=== PATIENT | male | born 1955 | race African-American/Black ===

== ENCOUNTER 2020-05-14 17:13 | Outpatient (CLI) | payer OTHER, SELFPAY ==
[2020-05-14 18:40] LABS: Hemoglobin A1C 6.3 % (<5.7)
[2020-05-14 18:41] LABS: Alanine Aminotransferase 48 U/L (4-50); Albumin Level 4.1 g/dL (3.5-5.1); Alkaline Phosphatase 83 U/L (38-126); Anion Gap 6 mmol/L (8-16); Aspartate Amino Transferase 46 U/L (17-59); Blood Urea Nitrogen 22 mg/dL (9-20); Calcium 9.5 mg/dL (8.4-10.2); Carbon Dioxide 33 mmol/L (22-30); Chloride 101 mmol/L (98-107); Cholesterol 174 mg/dL (0-200); Estimated Glomerular Filt Rate > 60; Glucose 134 mg/dL (75-110); HDL Direct 59 mg/dL; Potassium 3.8 mmol/L (3.4-5.0); Sodium 140 mmol/L (137-145); Triglycerides 110 mg/dL (<150)
[2020-05-14 18:53] LABS: LDL Cholesterol Direct 81 mg/dL
[2020-05-14 19:43] LABS: Vitamin D 25 Hydroxy 37.5 ng/mL
[2020-05-14 21:24] LABS: Valproic Acid < 10.0 ug/mL (50-120)
[2020-05-18 07:43] LABS: Levetiracetam Keppra 2.6 mcg/mL (12.0-46.0)
== END 2020-05-14 17:14 | disposition home or self-care (01) ==
LOC: ANHLAB 17:19
PROVIDERS: PCP Internal Medicine; Visit Provider Internal Medicine
DX: E11.21 Type 2 diabetes mellitus with diabetic nephropathy (principal); I10 Essential (primary) hypertension; G40.909 Epilepsy, unspecified, not intractable, without status epilepticus; E78.5 Hyperlipidemia, unspecified; E55.9 Vitamin D deficiency, unspecified
CPT/HCPCS: 36415; 80053; 80061; 80164; 80177; 82306; 83036

== ENCOUNTER 2020-05-16 10:31 | Outpatient (CLI) | payer OTHER, SELFPAY ==
--- NOTE | ~2020-05-16 | XR_ITS ---
XR chest 2V DATE: 05/16/2020 10:53 INDICATION: Cough for 2 months TECHNIQUE: PA and lateral views COMPARISON: None FINDINGS: There are multiple old healed right rib fractures. Normal heart size. No hilar or mediastinal enlargement. No pulmonary infiltrate or consolidation, ple ural effusion or pulmonary vascular congestion or pneumothorax. IMPRESSION: No active cardiopulmonary disease Reviewed, dictated and finalized at location B.
== END 2020-05-16 10:32 | disposition home or self-care (01) ==
LOC: ANHIMG 10:36
PROVIDERS: PCP Internal Medicine; Visit Provider Internal Medicine
DX: R05 Cough (principal)
CPT/HCPCS: 71046

== ENCOUNTER 2020-07-16 09:22 | Outpatient (CLI) | payer OTHER, SELFPAY ==
[2020-07-16 10:31] LABS: Valproic Acid 21.6 ug/mL (50-120)
[2020-07-19 09:33] LABS: Levetiracetam Keppra 27.2 mcg/mL (12.0-46.0)
== END 2020-07-16 09:23 | disposition home or self-care (01) ==
PROVIDERS: PCP Internal Medicine; Visit Provider Internal Medicine
DX: G40.909 Epilepsy, unspecified, not intractable, without status epilepticus (principal)
CPT/HCPCS: 36415; 80164; 80177

== ENCOUNTER 2020-11-14 11:46 | Outpatient (CLI) | payer OTHER, SELFPAY ==
[2020-11-14 12:57] LABS: Alanine Aminotransferase 25 U/L (4-50); Albumin Level 4.4 g/dL (3.5-5.1); Alkaline Phosphatase 63 U/L (38-126); Anion Gap 8 mmol/L (8-16); Aspartate Amino Transferase 34 U/L (17-59); Bilirubin,Total 0.6 mg/dL (0.2-1.3); Blood Urea Nitrogen 24 mg/dL (9-20); Calcium 9.2 mg/dL (8.4-10.2); Carbon Dioxide 29 mmol/L (22-30); Chloride 104 mmol/L (98-107); Cholesterol 167 mg/dL (0-200); Estimated Glomerular Filt Rate 53; Glucose 110 mg/dL (75-110); HDL Direct 56 mg/dL; Hemoglobin A1C 6.8 % (<5.7); Potassium 3.5 mmol/L (3.4-5.0); Sodium 141 mmol/L (137-145); Triglycerides 126 mg/dL (<150)
[2020-11-14 13:08] LABS: LDL Cholesterol Direct 79 mg/dL
[2020-11-14 13:26] LABS: Vitamin D 25 Hydroxy 46.4 ng/mL
== END 2020-11-14 11:47 | disposition home or self-care (01) ==
LOC: ANHLAB 11:49
PROVIDERS: PCP Internal Medicine; Visit Provider Nurse Practitioner
DX: E78.5 Hyperlipidemia, unspecified (principal); E11.9 Type 2 diabetes mellitus without complications; E55.9 Vitamin D deficiency, unspecified
CPT/HCPCS: 36415; 80053; 80061; 82306; 83036

== ENCOUNTER 2021-02-25 00:32 | Day surgery (SDC) | payer OTHER, SELFPAY ==
[2021-02-08 12:03] VITALS: BMI 26.4
--- NOTE | 2021-02-24 14:11 | SUR.PREOP ---
1151 02/23/21 CALLED PATIENT REGARDING HIM MISSING HIS COVID TEST ON THURSDAY. NO ANSWER LEFT MESSAGE ON VOICEMAIL WITH CALL BACK INFORMATION. 1412 02/24/21 CALLED PATIENT REGARDING HIS PROCEDURE. PATIENT ANSWERED, DISCUSSED WITH PATIENT HOW HE WANTED TO PROCEED SINCE HE MISSED HIS COVID TEST APPOINTMENT ON THURSDAY AND THAT IT IS REQUIRED TO HAVE HIS PROCEDURE DONE. INQUIRED ABOUT IF HE RECEIVED HIS COVID VACCINATION. PATIENT DENIED RECEIVING COVID VACCINATION. PATIENT WANTS TO HAVE HIS PROCEDURE DONE TOMORROW. DISCUSSED WITH HIM THAT HE WOULD NEED TO BE COVID TESTED WITH A NASAL SWAB IN THE MORNING WHEN HE ARRIVES AND THEN WAIT FOR RESULTS. IT WAS ALSO DISCUSSED THAT IF THE TEST COMES BACK POSITIVE HIS PROCEDURE WOULD NOT BE DONE AND WOULD HAVE TO BE RESCHEDULED SEVERAL WEEKS LATER AND HE WOULD HAVE DONE HIS COLON PREP WITHOUT THE PROCEDURE. OFFERED TO RESCHEDULE HIS PROCEDURE TO ANOTHER DAY. THE PATIENT WANTS TO DO THE PROCEDURE TOMORROW AND VOICED UNDERSTANDING OF HIS PROCEDURE POTENTIALLY BEING CANCELLED AFTER HE DOES HIS COLON PREP IF THE COVID TEST CAME BACK POSITIVE. INSTRUCTED PATIENT TO CALL WHEN HE ARRIVES IN THE MORNING AND THEN WE WILL COME OUT TO DO HIS COVID TEST AND HE WILL HAVE TO WAIT FOR THE RESULTS BEFORE HE IS ABLE TO COME IN TO BE REGISTERED.
[2021-02-25 08:22] VITALS: BP 156/91; PULSE 60; RESP 20; TEMP 36.5; O2SAT 100; BMI 24.0
[2021-02-25] MEDS: LACTATED RINGERS 1,000 ML 150 ML IV CONT (08:44)
--- NOTE | 2021-02-25 08:48 | WPDANESEPPF ---
Anes - Initial Pre Proc Eval Procedure: Operation Date: 02/25/21 09:00 Proposed Procedures p Screening Colonoscopy - Andrew Gutierrez MD Date/Time: 02/25/21 08:48 Surgeon: Andrew Gutierrez MD Pre Op Diagnosis: neoplasm screening Patient Data Age: 65 Gender: M Height: 1.73 m Weight: 71.8 kg Last Vital Signs Temp 36.5 C 02/25/21 08:22 Pulse 60 02/25/21 08:22 Resp 20 02/25/21 08:22 BP 156/91 H 02/25/21 08:22 Pulse Ox 100 02/25/21 08:22 Allergies Allergy/AdvReac Type Severity Reaction Status Date / Time Penicillins Allergy Intermediate pt does Verified 02/25/21 08:21 not know Home Medications Medication Instructions Recorded Confirmed Type ergocalciferol (vitamin D2) 1,250 50,000 unit PO MONTHLY 06/24/19 02/08/21 History mcg (50,000 unit) capsule simvastatin 80 mg tablet 80 mg PO DAILY 06/24/19 02/08/21 History nystatin 100,000 unit/gram topical 1 applic TOPICAL BID #15 gm 11/16/19 02/08/21 Rx cream fluticasone propionate 50 2 spray NASAL DAILY #18.2 ml 04/11/20 02/08/21 Rx mcg/actuation nasal spray,suspension mometasone 0.1 % topical cream 1 applic TOPICAL DAILY PRN #15 gm 08/03/20 02/08/21 Rx divalproex 500 mg tablet,extended See Rx Instructions .ROUTE 10/08/20 02/08/21 Rx release 24 hr .COMPLEX #240 tablet pen needle, diabetic 31 gauge x #200 each 11/19/20 Rx 1/4 lorazepam 1 mg tablet 0.5 mg PO BID PRN #30 tablet 01/24/21 02/08/21 Rx chlorthalidone 25 mg tablet 25 mg PO DAILY #90 tablet 01/29/21 02/08/21 Rx lisinopril 30 mg tablet 30 mg PO DAILY #90 tablet 01/29/21 02/08/21 Rx blood sugar diagnostic See Rx Instructions .ROUTE 01/31/21 Rx .COMPLEX #200 strip clonidine HCl 0.1 mg tablet 0.1 mg PO DAILY #90 tablet 02/08/21 Rx insulin glargine [Basaglar KwikPen 30 unit SUBCUT BID 02/08/21 02/08/21 History U-100 Insulin] lancets 33 gauge See Rx Instructions .ROUTE 02/08/21 Rx .COMPLEX #200 ea latanoprost 0.005 % eye drops 1 drp EACH EYE QPM #2.5 ml 02/08/21 Rx levetiracetam 500 mg tablet 500 mg PO TID #180 tablet 02/08/21 Rx metformin 1,000 mg tablet 1,000 mg PO BID #180 tablet 02/08/21 Rx hydrocodone 10 mg-acetaminophen 1 tablet PO DAILY PRN #30 tablet 02/11/21 Rx 325 mg tablet Patient hx anesthesia problems: none Family hx anesthesia problems: none PMFSH Family History Family History Mother Patient's mother is in good health Father Patient's father is in good health Sibling Patient's sister is in good health Patient's brother is in good health Social History Social History Smoking status: Never smoker Alcohol intake: former Substance use: never Substance use type: does not use Spiritual care concerns: No Anes - Eval Final PreProcedure Day of Procedure 02/25/21 08:48 Patient weight: normal Heart: regular rate and rhythm Lungs: clear to auscultation Airway: Mallampati scale class II and other (edentulous) Neurological: alert and oriented Last oral intake: >/= 8 hours ASA classification: III Emergent: no Anesthetic plan: proceed Anesthesia type and monitoring: general GIVS and standard monitoring Informed Consent: The patient's anesthetic plan and its attendant risks and benefits were discussed with the patient/family/POA. Questions were solicited and answers provided to the satisfaction of the patient/family/POA.
--- NOTE | 2021-02-25 09:02 | PM.HPGS ---
History of Present Illness History of Present Illness Consent: Risks, benefits, and alternatives have been discussed and questions answered. Patient agrees to proceed with procedure. Chief complaint: neoplasm screening Narrative: Gregg Henson is a 65 year old male with last colonoscopy 10 years ago. Also intermittent loose stool. Review of Systems Constitutional: Constitutional: Denies headache(s) and Denies weakness Eyes: Eyes: Denies blurry vision ENT: Reports Normal hearing present, Denies headache(s) and Denies neck pain Cardiovascular: Cardiovascular: Denies chest pain and Denies dyspnea Respiratory: Respiratory: Denies dyspnea Gastrointestinal: Gastrointestinal: Reports no additional gastrointestinal complaints Genitourinary: Genitourinary: Denies dysuria Musculoskeletal: Musculoskeletal: Denies neck pain Integumentary/Breasts: Skin/Breast: Denies dry skin Neurologic: Reports Normal hearing present, Denies headache(s) and Denies weakness Psychiatric: Psychiatric: Denies anxiety Endocrine: Endocrine: Denies change in body appearance Hematologic/Lymphatic: Hematologic/Lymphatic: Denies easy bleeding Allergic/Immunologic: Allergic/Immunologic: Denies urticaria [facility] Past Medical History Medical History (Updated 02/25/21 @ 09:03 by Andrew Gutierrez MD) Colon cancer screening Family History Family History Mother Patient's mother is in good health Father Patient's father is in good health Sibling Patient's sister is in good health Patient's brother is in good health Social History Social History Smoking status: Never smoker Alcohol intake: former Substance use: never Substance use type: does not use Spiritual care concerns: No Meds Home Medications and Allergies Home Medications Medication Instructions Recorded Confirmed Type ergocalciferol (vitamin D2) 1,250 50,000 unit PO MONTHLY 06/24/19 02/08/21 History mcg (50,000 unit) capsule simvastatin 80 mg tablet 80 mg PO DAILY 06/24/19 02/08/21 History nystatin 100,000 unit/gram topical 1 applic TOPICAL BID #15 gm 11/16/19 02/08/21 Rx cream fluticasone propionate 50 2 spray NASAL DAILY #18.2 ml 04/11/20 02/08/21 Rx mcg/actuation nasal spray,suspension mometasone 0.1 % topical cream 1 applic TOPICAL DAILY PRN #15 gm 08/03/20 02/08/21 Rx divalproex 500 mg tablet,extended See Rx Instructions .ROUTE 10/08/20 02/08/21 Rx release 24 hr .COMPLEX #240 tablet pen needle, diabetic 31 gauge x #200 each 11/19/20 Rx 1/4 lorazepam 1 mg tablet 0.5 mg PO BID PRN #30 tablet 01/24/21 02/08/21 Rx chlorthalidone 25 mg tablet 25 mg PO DAILY #90 tablet 01/29/21 02/08/21 Rx lisinopril 30 mg tablet 30 mg PO DAILY #90 tablet 01/29/21 02/08/21 Rx blood sugar diagnostic See Rx Instructions .ROUTE 01/31/21 Rx .COMPLEX #200 strip clonidine HCl 0.1 mg tablet 0.1 mg PO DAILY #90 tablet 02/08/21 Rx insulin glargine [Basaglar KwikPen 30 unit SUBCUT BID 02/08/21 02/08/21 History U-100 Insulin] lancets 33 gauge See Rx Instructions .ROUTE 02/08/21 Rx .COMPLEX #200 ea latanoprost 0.005 % eye drops 1 drp EACH EYE QPM #2.5 ml 02/08/21 Rx levetiracetam 500 mg tablet 500 mg PO TID #180 tablet 02/08/21 Rx metformin 1,000 mg tablet 1,000 mg PO BID #180 tablet 02/08/21 Rx hydrocodone 10 mg-acetaminophen 1 tablet PO DAILY PRN #30 tablet 02/11/21 Rx 325 mg tablet Allergies Allergy/AdvReac Type Severity Reaction Status Date / Time Penicillins Allergy Intermediate pt does Verified 02/25/21 08:21 not know Vital Signs Vital Signs - 24 hr 02/25/21 08:22 Temperature 97.7 F Pulse Rate 60 Respiratory Rate 20 Blood Pressure 156/91 H Pulse Oximetry 100 Exam Const: General: comfortable and no acute distress HENMT: General nose exam: Normal nares present Eyes: General: appearance normal, bot
[2021-02-25 09:09] LABS: Glucose Point of Care 151 mg/dl (65-105)
[2021-02-25 09:41] VITALS: BP 147/88; PULSE 58; RESP 18; O2SAT 100
[2021-02-25 09:51] VITALS: BP 162/79; PULSE 62; RESP 26; O2SAT 100
[2021-02-25 10:00] LABS: Glucose Point of Care 161 mg/dl (65-105)
[2021-02-25 10:01] VITALS: BP 153/90; PULSE 62; RESP 22; O2SAT 100
== END 2021-02-25 10:03 | disposition home or self-care (01) ==
PROVIDERS: PCP Internal Medicine; Visit Provider Internal Medicine Gastroenterology
PROC: 0DJD8ZZ Inspection of Lower Intestinal Tract, Via Natural or Artificial Opening Endoscopic (ICD-10-PCS; CPT 45378; principal; 2021-02-25 09:00)
DX: Z12.11 Encounter for screening for malignant neoplasm of colon (principal); R19.7 Diarrhea, unspecified; K64.8 Other hemorrhoids; Z79.4 Long term (current) use of insulin
CPT/HCPCS: 45380; 36415; 82948; 87426; 88305; C9803; J2704; J7120

== ENCOUNTER 2021-02-25 06:24 | Outpatient (CLI) | payer OTHER, SELFPAY ==
[2021-02-25 07:33] LABS: EDCOVIDSCREEN Negative (Negative)
== END 2021-02-25 06:25 | disposition home or self-care (01) ==
PROVIDERS: PCP Internal Medicine; Visit Provider Internal Medicine Gastroenterology
DX: Z01.812 Encounter for preprocedural laboratory examination (principal); Z20.822 Contact with and (suspected) exposure to COVID-19
CPT/HCPCS: 36415; 87426; C9803

== ENCOUNTER 2021-03-11 15:00 | Outpatient (CLI) | payer OTHER, SELFPAY ==
[2021-03-11 16:08] LABS: CRP 0.7 mg/dL (<1.0); Uric Acid 10.3 mg/dL (3.5-8.5)
[2021-03-11 16:25] LABS: Erythrocyte Sedimentation Rate 38 mm/hr (0-20)
== END 2021-03-11 15:01 | disposition home or self-care (01) ==
LOC: ANHLAB 15:03
PROVIDERS: PCP Internal Medicine; Visit Provider Podiatrist Foot & Ankle Surgery
DX: M10.071 Idiopathic gout, right ankle and foot (principal)
CPT/HCPCS: 36415; 84550; 85652; 86140

== ENCOUNTER 2021-03-26 10:52 | Outpatient (CLI) | payer OTHER, SELFPAY ==
[2021-03-26 11:51] LABS: Alanine Aminotransferase 27 U/L (4-50); Albumin Level 4.5 g/dL (3.5-5.1); Alkaline Phosphatase 71 U/L (38-126); Anion Gap 9 mmol/L (8-16); Aspartate Amino Transferase 34 U/L (17-59); Bilirubin,Total 0.8 mg/dL (0.2-1.3); Blood Urea Nitrogen 19 mg/dL (9-20); Calcium 9.8 mg/dL (8.4-10.2); Carbon Dioxide 28 mmol/L (22-30); Chloride 101 mmol/L (98-107); Cholesterol 210 mg/dL (0-200); Estimated Glomerular Filt Rate 57; Glucose 114 mg/dL (65-110); HDL Direct 75 mg/dL; Potassium 3.7 mmol/L (3.4-5.0); Sodium 138 mmol/L (137-145); Triglycerides 129 mg/dL (<150)
[2021-03-26 12:02] LABS: LDL Cholesterol Direct 90 mg/dL
[2021-03-26 12:05] LABS: Hemoglobin A1C 6.2 % (<5.7)
[2021-03-26 12:21] LABS: Prostate Specific Antigen 1.1 ng/mL (< OR = 4.0)
[2021-03-26 12:59] LABS: Creatinine Urine 67.3 mg/dL
[2021-03-26 13:05] LABS: MALB Creatinine Ratio 80.8 mg/g (0-30); Microalbumin Urine Random 54.4 mg/L (0-16.7)
[2021-03-26 13:16] LABS: Vitamin D 25 Hydroxy 44.7 ng/mL
[2021-03-29 11:51] LABS: Levetiracetam Keppra 25.9 mcg/mL (12.0-46.0)
== END 2021-03-26 10:53 | disposition home or self-care (01) ==
LOC: ANHLAB 10:55
PROVIDERS: PCP Internal Medicine; Visit Provider Nurse Practitioner
DX: E11.21 Type 2 diabetes mellitus with diabetic nephropathy (principal); N40.1 Benign prostatic hyperplasia with lower urinary tract symptoms; E55.9 Vitamin D deficiency, unspecified; E78.5 Hyperlipidemia, unspecified; G40.909 Epilepsy, unspecified, not intractable, without status epilepticus
CPT/HCPCS: 36415; 80053; 80061; 80177; 82043; 82306; 83036; 84153

== ENCOUNTER 2021-07-17 12:09 | Emergency (ER) | payer OTHER, SELFPAY ==
[2021-07-17] VITALS (24 sets, daily range): BP systolic 156–172; BP diastolic 71–94; PULSE 54–73; RESP 9–20; TEMP 36.7; O2SAT 97–100
--- NOTE | ~2021-07-17 | CT_ITS ---
EXAMINATION: CT brain wo con DATE: 07/17/2021 13:02 INDICATION: Status post fall. Head injury. TECHNIQUE: Computed tomography (CT) of the head was performed without intravenous contrast. The dose- length product was 605.33 mGy-cm. Automated exposure control and iterative reconstruction technique were employed. COMPARISON: CT dated 07/03/2013 FINDINGS: No acute intracranial hemorrhage, infarction, mass or mass effect. No ventriculomegaly or m idline shift. There is soft tissue opacification the right maxillary sinus. There are surgical change s of the left orbit. No depressed skull fractures. There are multiple foreign bodies in the left fron rogelio scalp soft tissues. No acute intracranial hemorrhage, infarction or mass. There are scattered mil d periventricular and subcortical white matter changes, most likely related to small vessel ischemic disease (microangiopathy). IMPRESSION: 1. No acute intracranial abnormality. 2: Chronic age-related findings. 3: Right maxillary sinusitis. Reviewed, dictated and finalized at location B. AL DISPLAY ASSOCIATE
--- NOTE | ~2021-07-17 | XR_ITS ---
EXAMINATION: XR knee LT min 4V DATE: 07/17/2021 13:09 INDICATION: Left knee pain post ground-level fall TECHNIQUE: Anteroposterior, 2 oblique and crosstable lateral views of the left knee were obtained COMPARISON: None. FINDINGS: Old healed proximal left fibular diaphyseal fracture. There is likely secondary solid osseous fusion between the proximal tibia and fibula. No acute fractures identified. Small marginal osteophytes and at least mild joint space narrowing in the medial compartment which could be underestimated small ent hesophyte at the inferior pole of the patella. On nonweightbearing imaging. No joint effusion/layerin g lipohemarthrosis. Lesser calcification along the arteries of the distal thigh and proximal calf. So ft tissues are otherwise unremarkable. IMPRESSION: 1. No left knee joint effusion or acute osseous abnormality. 2. Old healed proximal left fibular fracture and mild degenerative changes at the left knee. Reviewed, dictated and finalized at location A. H CLEARANCE COORDINATOR IMPRESSION: 1. No left knee joint effusion or acute osseous abnormality. 2. Old healed proximal left fibular fracture and mild degenerative changes at t he left knee.
--- NOTE | ~2021-07-17 | XR_ITS ---
EXAMINATION: XR chest 2V DATE: 07/17/2021 13:09 INDICATION: Chest pain post ground-level fall TECHNIQUE: frontal and lateral views of the chest were obtained. COMPARISON: Chest radiograph dated 05/16/2020 FINDINGS: The lungs remain clear with no focal airspace opacities, pulmonary edema, pleural effusion or pneumot horax. The cardiomediastinal silhouette is normal. Old healed right fifth-eighth rib fractures. Moder ate midthoracic spondylosis. Chronic mild anterior wedging at T11. Cholecystectomy clips in right upp er quadrant. IMPRESSION: 1. No acute cardiopulmonary disease. Reviewed, dictated and finalized at location A. ASS PLANT MANAGER
--- NOTE | ~2021-07-17 | CT_ITS ---
EXAMINATION: CT cervical spine wo con EXAM DATE: 07/17/2021 13:02 INDICATION: Fall, neck pain . Initial encounter. Pinpoint left pupil. TECHNIQUE: Spiral CT of the cervical spine was performed without contrast. Axial images were reviewe d. Coronal and sagittal reformatted images cervical spine were also reviewed. The dose-length produc t (DLP) for this examination was 418.26 mGy-cm. The exposure was tailored according to patient size (auto mA exposure control), and iterative reconstruction (ASIR) was used as additional dose reduction technique. There is no prior study for comparison. FINDINGS: There is no evidence of acute cervical fracture. The odontoid process is intact. Pre-dens space is normal. Prevertebral soft tissue is normal. There are no soft tissue abnormalities identi fied. There is no disc space widening or traumatic vertebral body subluxation suspected. Moderate t o severe cervical disc disease, mild to moderate arthropathy. A detailed level by level evaluation o f spondylosis can be added as addendum if requested. IMPRESSION: 1. No acute cervical fracture. 2. Cervical spondylosis. Reviewed, dictated and finalized at location A. HERMAL FIELD TECHNICIAN
--- NOTE | 2021-07-17 12:11 | ED.CHESTPAIN ---
HPI - Chest Pain General Chief Complaint: Fall Stated Complaint: fall, head & neck pain Time Seen by Provider: 07/17/21 12:10 Source: patient and EMS Mode of arrival: EMS Limitations: no limitations History of Present Illness HPI narrative: Patient is a 65-year-old male with a history of type 2 diabetes, hypertension, hyperlipidemia, seizure disorder taking Keppra presenting for evaluation of head trauma, neck pain, chest pain. Patient states that he his left knee gave out while descending a flight of steps yesterday, causing him to fall down the last 3 steps and hit his head. Pt denies any passing out. Denies prodromal symptoms prior to the fall. He denies any chest pain, dyspnea, palpitations prior to his knee giving out. Patient does think that he may have lost consciousness for 1 to 2 minutes. Patient's family was able to help him ambulate last night but patient does report left knee pain. Patient denies any numbness.Pt has been ambulatory today. No recurrent falls. No difficulty with speech. No significant vision changes, nausea or vomiting. Patient reports abrasion to his left forehead as well as neck pain. Patient was seen at an urgent care this morning, reportedly found to be bradycardic in the 30s with unequal pupils, thus was sent to our facility for evaluation. Patient denies taking any anticoagulation. Denies history of stroke. No recent fever, chills, nausea or vomiting. Related Data Home Medications Medication Instructions Recorded Confirmed ergocalciferol (vitamin D2) 1,250 50,000 unit PO MONTHLY 06/24/19 03/19/21 mcg (50,000 unit) capsule simvastatin 80 mg tablet 80 mg PO DAILY 06/24/19 03/19/21 Allergies Allergy/AdvReac Type Severity Reaction Status Date / Time Penicillins Allergy Intermediate pt does Verified 03/19/21 10:41 not know Review of Systems Review of Systems: CONSTITUTIONAL: Denies fever, chills, or sweats. EYES: Denies visual changes, redness, or discharge. ENT: Denies rhinorrhea, congestion, sore throat, or otalgia. CARDIOVASCULAR: Reports chest tightness without palpitations, no lower extremity edema. Pt reports chest tightness that began this morning. Reports bilateral rib pain and soreness, that is worse with movement. RESPIRATORY: Denies cough or dyspnea. GASTROINTESTINAL: Denies abdominal pain, nausea, vomiting, or diarrhea. GENITOURINARY: Denies dysuria or hematuria. SKIN: Denies rash or itching. MUSCULOSKELETAL: Reports neck pain, reports left knee pain NEUROLOGIC: Denies headache, numbness, reports feeling diffusely weak PMFSH Past Medical History Medical History (Updated 07/17/21 @ 16:26 by Madhavi Lugo MD) Allergies Anticonvulsant therapeutic drug level Anxiety Body mass index (bmi) 25.0-25.9, adult (10/28/18) Chronic bilateral low back pain Chronic narcotic use Colon cancer screening Diarrhea Dietary counseling and surveillance (06/12/16) Enlarged prostate with lower urinary tract symptoms (LUTS) Enlarged prostate without lower urinary tract symptoms (luts) Epilepsy, unspecified, not intractable, without status epilepticus Essential (primary) hypertension Gastro-esophageal reflux disease with esophagitis Hyperlipidemia, unspecified Male erectile dysfunction, unspecified Medication monitoring encounter Microalbuminuria Open-angle glaucoma Overweight (06/13/15) 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
--- NOTE | 2021-07-17 12:15 | ECG_ITS ---
Measurements Intervals [place] Rate: 71 P: 68 WV: 172 QRS: 20 QRSD: 89 T: 58 QT: 384 QTc: 419 Interpretive Statements SINUS RHYTHM WITH MARKED SINUS ARRHYTHMIA ATRIAL PREMATURE COMPLEX BORDERLINE ECG Electronically Signed On 07-17-2021 12:42:14 REGISTERED NURSE by Chuy Wright D.O.
[2021-07-17 12:33] LABS: Glucose Point of Care 101 mg/dl (65-105)
[2021-07-17 12:47] LABS: Basophils Percent Auto 0.6 % (0.2-1.2); Eosinophils Absolute Auto 0.1 K/mm3 (0-0.3); Eosinophils Percent Auto 3.3 % (0-4.4); Hematocrit 35.2 % (42.0-52.0); Hemoglobin 11.8 g/dL (14.0-18.0); Immature Granulocyte Absolute 0.01 K/mm3 (0.00-0.031); Immature Granulocyte Percent A 0.3 % (0-0.5); Lymphocytes Absolute Auto 2.11 K/mm3 (0.9-3.2); Lymphocytes Percent Auto 58.4 % (18.3-44.2); Mean Corpuscular HGB Conc 33.5 g/dl (32-36); Mean Corpuscular Hemoglobin 30.3 pg (26-34); Mean Corpuscular Volume 90.5 fl (80-100); Mean Platelet Volume 11.5 fl (7.4-10.4); Monocytes Absolute Auto 0.2 K/mm3 (0.1-0.6); Monocytes Percent Auto 6.6 % (2.6-8.5); Neutrophils Absolute Auto 1.1 K/mm3 (1.3-6.7); Neutrophils Percent Auto 30.8 % (45.5-73.1); Platelet Count Result 171 k/mm3 (150-375); Red Blood Count 3.89 M/mm3 (4.6-6.20); Red Cell Distribution Width 12.3 % (11.5-14.5); White Blood Count 3.6 K/mm3 (4.5-10.0)
[2021-07-17 12:57] LABS: Alanine Aminotransferase 31 U/L (4-50); Albumin Level 4.5 g/dL (3.5-5.1); Alkaline Phosphatase 88 U/L (38-126); Anion Gap 10 mmol/L (8-16); Aspartate Amino Transferase 55 U/L (17-59); Bilirubin,Total 0.6 mg/dL (0.2-1.3); Blood Urea Nitrogen 23 mg/dL (9-20); Calcium 9.5 mg/dL (8.4-10.2); Carbon Dioxide 32 mmol/L (22-30); Chloride 105 mmol/L (98-107); Estimated CRCL calculation 50 ml/min; Estimated Glomerular Filt Rate > 60; Glucose 105 mg/dL (65-110); Potassium 3.7 mmol/L (3.4-5.0); Sodium 147 mmol/L (137-145)
[2021-07-17 13:14] LABS: Troponin I 0.023 ng/mL (0.000-0.034)
[2021-07-17] MEDS: SODIUM CHLORIDE 0.9% IV 1,000 ML 999 ML IV CONT (13:24)
[2021-07-17 15:58] LABS: Troponin I 0.022 ng/mL (0.000-0.034)
[2021-07-20 03:41] LABS: Levetiracetam Keppra 11.3 mcg/mL (12.0-46.0)
== END 2021-07-17 16:48 | disposition home or self-care (01) ==
PROVIDERS: Emergency Provider Emergency Medicine; PCP Internal Medicine
DX: H57.02 Anisocoria (principal); R07.89 Other chest pain; M25.562 Pain in left knee; I10 Essential (primary) hypertension; E78.5 Hyperlipidemia, unspecified; G40.909 Epilepsy, unspecified, not intractable, without status epilepticus; N40.0 Benign prostatic hyperplasia without lower urinary tract symptoms; E11.21 Type 2 diabetes mellitus with diabetic nephropathy; E66.3 Overweight; Z68.26 Body mass index [BMI] 26.0-26.9, adult; J32.0 Chronic maxillary sinusitis; M47.812 Spondylosis without myelopathy or radiculopathy, cervical region; I49.1 Atrial premature depolarization; Z79.4 Long term (current) use of insulin; Z79.84 Long term (current) use of oral hypoglycemic drugs; W10.9XXA Fall (on) (from) unspecified stairs and steps, initial encounter
CPT/HCPCS: 36415; 70450; 71046; 72125; 73564; 80053; 80177; 82948; 84484; 85025; 93005; 96360; 99284; J7030